=== PATIENT | female | born 1945 | race Caucasian/White ===

== ENCOUNTER 2018-05-23 13:41 | Inpatient (IN) | payer MEDICARE, SELFPAY ==
[2018-05-23 13:44] VITALS: BP 120/82; PULSE 64; RESP 16; TEMP 36; O2SAT 97
--- NOTE | 2018-05-23 14:13 | CT_ITS ---
STUDY: CT BRAIN WITHOUT CONTRAST REASON FOR EXAM: Female, 72 years old. Confusion, weakness and fatigue. RADIATION DOSAGE (If Supplied By Facility): CTDIvol = ( 44.99 ) mGy, DLP = ( 728.62 ) mGycm TECHNIQUE: Transaxial CT imaging of the brain was performed without administration of intravenous contrast material. Individualized dose optimization techniques were used for this CT. COMPARISON: None. FINDINGS: Normal soft tissue structures. Normal calvarium. There is mild cerebral atrophy with widening of the extra-axial spaces and ventricular dilatation. There are areas of decreased attenuation within the white matter tracts of the supratentorial brain, consistent with microvascular disease changes. Normal basal ganglia and thalami. Normal brainstem. Normal cerebellum. There is no intracranial hemorrhage. There are no findings of an acute ischemic infarction. Atherosclerotic calcification of the cavernous portions of the internal carotid arteries bilaterally. Normal visualized paranasal sinuses. CT/Brain/Head without Contrast IMPRESSION: Chronic involutional changes of the brain. Electronically Signed: Jeison Alvarez MD at 15:52 EST , Service support ,
--- NOTE | 2018-05-23 14:13 | RAD_ITS ---
STUDY: X-RAY CHEST REASON FOR EXAM: Female, 72 years old. Confusion, fatigue and tremors. TECHNIQUE: Single AP portable view of the chest. COMPARISON: Comparison is made with prior study dated November 27, 2015. FINDINGS: Hyperinflation. The lungs are clear. There is no demonstrated pleural abnormality. Normal size heart. Normal mediastinum and david. Normal visualized pulmonary arteries. There is atherosclerotic calcification of the aortic arch with tortuosity. There are diffuse degenerative changes of the visualized thoracic spine. Normal visualized ribs, clavicles, and shoulders. There is no demonstrated abnormality of the visualized soft tissue structures of the upper abdomen. RAD/Chest 1 View (Portable) IMPRESSION: Hyperinflation. The lungs are clear. Electronically Signed: Jeison Alvarez MD at 14:49 EST , Service support ,
--- NOTE | 2018-05-23 14:13 | EKG12_ITS ---
Test Reason : CONFUSION Blood Pressure : / mmHG Vent. Rate : 058 BPM Atrial Rate : 058 BPM P-R Int : 152 ms QRS Dur : 082 ms QT Int : 444 ms P-R-T Axes : 021 014 025 degrees QTc Int : 435 ms Sinus bradycardia Otherwise normal ECG Confirmed by MOON MEZA, JAVY ([id number]), managing editor BASILIO TORRES ([id number] on 05/27/2018 3:31:17 PM Referred By: ALLISON Confirmed By:JAVY MUSTAFA MD
--- NOTE | 2018-05-23 14:16 | ED.VISSUMM ---
- ER Visit Summary Date of Service: 05/23/18 Chief Complaint: Confusion History of Present Illness: The patient is a 72 F history of renal insufficiency, reflux, hypertension and prior symptoms in 2018 secondary to UTI. Per the patient and her boyfriend she slept most of the day yesterday. And is been confused today with unsteadiness and dropping things. No headache. No falls. No trauma. She denies nausea, vomiting, diarrhea or fever. Physical Examination: Older female no acute distress. Vital signs are stable and afebrile. Pulse ox 97% on room air no signs of hypoxia. She is awake and alert. HEENT exam pupils round react light. Moist extremities. No facial droop. Normal speech. No signs of trauma to face or scalp. Neck nontender. No lymphadenopathy. No meningismus. Lungs there to auscultation bilaterally. Heart regular rhythm no murmur rate about 85. Chest wall nontender. Abdomen soft and nontender. Patient is moving all 4 extremities. Neurovascular intact. Nontender. No edema. Equal symmetrical trials manager strength. Dorsi plantar flexion intact. Back nontender. Neurologically she is awake. She answers questions. She follows commands. She is acting appropriately. When you ask of the day she thinks it is Saturday. When I asked with a month she thought it was December. Her boyfriend is at bedside and said this is not her baseline. Test Results: [] Emergency Department Course and Treatment: Patient with confusion. Treatment Plan: [] Disposition: Admission Impression: Acute confusion History of renal insufficiency, reflux and hypertension This note was generated with [employer] dictation software. It may contain incorrect words, spelling, and punctuation that were not noted in review of the chart prior to signing ED Disposition - Plan for ED Patient: Chief Complaint: Confusion Referrals: Giuseppe Hunt DO [Primary Care Provider] -
--- NOTE | 2018-05-23 14:19 | ED.DCSUM_ITS ---
- ER Visit Summary Date of Service: 05/23/18 Chief Complaint: Confusion History of Present Illness: The patient is a 72 F history of renal insufficiency, reflux, hypertension and prior symptoms in 2018 secondary to UTI. Per the patient and her boyfriend she slept most of the day yesterday. And is been confused today with unsteadiness and dropping things. No headache. No falls. No trauma. She denies nausea, vomiting, diarrhea or fever. Physical Examination: Older female no acute distress. Vital signs are stable and afebrile. Pulse ox 97% on room air no signs of hypoxia. She is awake and alert. HEENT exam pupils round react light. Moist extremities. No facial droop. Normal speech. No signs of trauma to face or scalp. Neck nontender. No lymphadenopathy. No meningismus. Lungs there to auscultation bilaterally. Heart regular rhythm no murmur rate about 85. Chest wall nontender. Abdomen soft and nontender. Patient is moving all 4 extremities. Neurovascular intact. Nontender. No edema. 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 Dorsi plantar flexion intact. Back nontender. Neurologically she is awake. She answers questions. She follows commands. She is acting appropriately. When you ask of the day she thinks it is Saturday. When I asked with a month she thought it was December. Her boyfriend is at bedside and said this is not her baseline. Test Results: [] Emergency Department Course and Treatment: Patient with confusion. Treatment Plan: [] Disposition: Admission Impression: Acute confusion History of renal insufficiency, reflux and hypertension This note was generated with [employer] dictation software. It may contain incorrect words, spelling, and punctuation that were not noted in review of the chart prior to signing ED Disposition - Plan for ED Patient: Chief Complaint: Confusion Referrals: Giuseppe Hunt DO [Primary Care Provider] -
[2018-05-23 14:39] VITALS: BMI 30.1
[2018-05-23 15:01] LABS: Anion Gap 9 (5-15); BUN 19 mg/dL (7-18); BUN/Creat Ratio 9.6 RATIO (10-20); Chloride 105 mmol/L (98-107); Creatinine, Serum 1.97 mg/dL (0.55-1.02); EST Glomerular Filtration Rate 27 mL/min (>60); Est Glom Filt Rate - Afr Amer 32 mL/min (>60); Estimated Creatinine Clearance 21.02 ml/min; Glucose 96 mg/dL (74-106); Sodium Level 138 mmol/L (136-145)
[2018-05-23 15:02] LABS: Absolute Lymphocyte Count 1.99 X10^3/ul (0.83-4.51); Absolute Neutrophil Count 5.4 X10^3/uL (2.0-7.7); Basophil# 0.07 X10^3/uL; Basophil% 0.9 % (0-1); Eosinophil# 0.12 X10^3/uL; Eosinophils% 1.5 % (0-5); Hematocrit 41.3 % (37-47); Hemoglobin 13.2 g/dl (12.0-15.0); Lymphocyte # 1.99 X10^3/ul (4.0); Lymphocyte % 24.6 % (19-41); Mean Corpuscular Hgb 30.5 pg (27.0-32.0); Mean Corpuscular Volume 95.4 fL (81-99); Mean Platelet Vol. 11.2 fl (6.2-12.0); Monocyte# 0.52 X10^3/uL; Monocyte% 6.4 % (0-10); Neutrophil # 5.38 X10^3/uL (2.7-7.7); Neutrophil % 66.6 % (47-70); POSITIVE COUNT NO; POSITIVE DIFFERENTIAL NO; Platelet Count 286 K/mm3 (150-450); RBC Distribution Width CV 14.1 % (11.6-14.6); RBC Distribution Width SD 49.2 fl (35.1-43.9); Red Blood Count 4.33 M/mm3 (4.2-5.4); White Blood Count 8.1 K/mm3 (4.4-11.0)
[2018-05-23 15:44] LABS: Mucous, Urine 0 SEEN /hpf (<or=2+)
[2018-05-23 15:56] LABS: Color, Urine Yellow (Yellow); Glucose, Dipstick Normal (Normal); Ketone-Dipstick 5 mg/dl (Negative); Leukocyte Esterase-Dipstick 25 /ul (Negative); Nitrite-Dipstick Negative (Negative); Occult Blood-Urine 250 /ul (Negative); Protein-Dipstick 15 mg/dl (Negative); Specific Gravity, Urine 1.015 (1.002-1.030); Urine Bilirubin Dipstick Negative (Negative); Urine Clarity Sl. Cloudy (Clear); Urine Urobilinogen Normal (Normal)
[2018-05-23 15:58] LABS: POSITIVE MORPHOLOGY NO
[2018-05-23 16:00] VITALS: BP 128/63; PULSE 53; RESP 18; O2SAT 93
[2018-05-23 16:25] LABS: Bacteria 3+ /hpf (None Seen); Red Blood Cells-Urine 25-50 SEEN /hpf (0-5); Squamous Epithelial Cells - UA 5-10 SEEN /hpf (5-10); White Blood Cells 0-5 SEEN /hpf (0-5)
--- NOTE | 2018-05-23 17:17 | PCM.HP.STD ---
<Manuel Ballard - Last Filed: 05/23/18 17:17> Problem List (1) Acute metabolic encephalopathy Status: Acute (2) UTI (urinary tract infection) Status: Acute (3) CKD (chronic kidney disease), stage IV Status: Chronic (4) CAD (coronary artery disease) Status: Chronic (5) HTN (hypertension) Status: Chronic (6) GERD (gastroesophageal reflux disease) Status: Chronic History of Present Illness Date of Admission: 05/23/18 Chief Complaint: confusion The patient is a 72 year old F with pmhx of CAD without prior stenting/CABG, CKDIV, solitary kidney, GERD, HTN, who presents to the ER with new onset confusion. She is A/Ox1, so most of the history was obtained from her boyfriend who is present. He states he first noticed something was wrong yesterday as she was very lethargic all day and he thinks she slept for about 36 hours. This morning she woke up and was confused, when she spoke she didnt make any sense, and she seemed unsteady on her feet. She said she could not understand the newspaper. He states this is how she is when she gets UTI's, and that she had a severe one in August. She is very lethargic and required sternal rub to wake up. When she awoke she could tell me her full name. She could not tell me where she was or what year/day it was, or who was the president. She stated it was 2000. She did answer yes/no questsions. She speaks clearly. She denies pain, dysuria, chills, fever. She also was able to ambulate to the bathroom with an assistant media buyer. [] Past Medical History Past Medical History (Chronic Problems): Chronic Problems CKD (chronic kidney disease), stage IV (Chronic) CAD (coronary artery disease) (Chronic) HTN (hypertension) (Chronic) GERD (gastroesophageal reflux disease) (Chronic) Allergies codeine Allergy (Verified 05/23/18 13:44) Nausea/Vom/Diarrhea oxybutynin [From Ditropan] Allergy (Verified 05/23/18 13:44) Swelling Home Medications: Ambulatory Orders Medication Instructions Recorded Aspirin [Aspirin, Baby] 81 mg PO DAILY@0800 11/27/15 Atorvastatin Calcium [Lipitor] 40 mg PO QHS 11/27/15 Docusate Sodium [Colace] 100 mg PO BID 11/27/15 Gabapentin [Neurontin] 600 mg PO BIDCM 11/27/15 Hydrocodone Bitart/Apap 5-325 1 tablet PO TID 11/27/15 [[place] 5MG-325MG] Loratadine [Claritin] 10 mg PO DAILY 11/27/15 Nitroglycerin [Nitrostat] 0.4 mg SUBLINGUAL Q5M PRN 11/27/15 Omeprazole [Prilosec] 20 mg PO DAILY 11/27/15 traZODone [Desyrel] 50 - 100 mg PO QHS 11/27/15 Acebutolol HCl 200 mg PO DAILY 05/23/18 Baclofen 10 mg PO TID PRN PRN 05/23/18 Cholecalciferol (Vitamin D3) 2,000 unit PO DAILY 05/23/18 [Vitamin D3] Clobetasol Propionate 1 applic TP BID 05/23/18 Duloxetine Hcl [Cymbalta] 30 mg PO DAILY 05/23/18 Estradiol [Estrace] 1 applic TP DAILY 05/23/18 Losartan Potassium 50 mg PO DAILY 05/23/18 Mupirocin Calcium [Bactroban] 1 applic TP TID 05/23/18 Nifedipine [Nifedipine ER] 30 mg PO DAILY 05/23/18 Triamcinolone Acetonide 1 applic TP BID 05/23/18 Surgical History: no surgical history Psychiatric History: No pertinent psych hx 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 Denies: Chills, Fever, Weight Change HEENT: Denies: Head Aches, Sinus Congestion, Sinus Drainage Cardiovascular: Denies: Chest Pain, Palpitations Respiratory: Denies: Cough, Shortness of breath at rest, Sputum production Gastrointestinal: Denies: Abdominal Pain, Nausea, Vomiting Genitourinary: Denies: Dysuria Musculoskeletal: Denies: Joint Pain, Joint Tenderness Skin: Denies: Rash, Wounds Neurological: Reports: Confusion. Denies: Focal weakness, Numbness, Tingling Psychiatric: Denies: Anxiety, Depression, Homicidal Ideations, Suicidal Ideations Hematologic/ Lymphatic: Denies: Easy Bruising, Easy Bleeding VTE Information - Inpt Only VTE Present on Admission: No VTE Mechan Device Prophylaxis: None VTE Pharm Prophylaxis ordered?: Yes Patient Problems: Active and Suspected Problems Acute metabolic encephalopathy (Acute) UTI (urinary tract infection) (Acute) - Physical Exam General: Alert, Cooperative, Lethargic HEENT: Atraumatic, PERRLA, EOMI, Normocephalic Neck: Supple, No JVD, Negative Carotid Bruits Lungs: Clear to auscultation, Normal air movement Cardiovascular: Regular rate, No murmurs Abdomen: Bowel Sounds Present, Soft, Non Tender Extremities: No edema, Capillary Refill Less than 3 Seconds Skin: No rashes, No breakdown Musculoskeletal: No Tenderness to Palpation of Joints or Extremities Neurological: Cranial nerves II-XII grossly intact Psych/Mental Status: Normal Affect Vital Signs Temp Pulse Resp BP Pulse Ox 96.8 F L 53 L 18 128/63 H 93 05/23/18 13:44 05/23/18 16:00 05/23/18 16:00 05/23/18 16:00 05/23/18 16:00 Oxygen Delivery Method Room Air Weight: 164 lb 7.437 oz Body Mass Index (BMI) 30.0 Laboratory Tests Past 24 Hrs 05/23/18 05/23/18 05/23/18 14:35 14:35 15:40 WBC 8.1 RBC 4.33 Hgb 13.2 Hct 41.3 MCV 95.4 MCH 30.5 MCHC 32.0 RDW 14.1 RDW Differential 49.2 H Plt Count 286 MPV 11.2 Immature Gran % (Auto) 0.000 Neut % (Auto) 66.6 Lymph % (Auto) 24.6 [place] % (Auto) 6.4 Eos % (Auto) 1.5 Baso % (Auto) 0.9 Absolute Neuts (auto) 5.4 Absolute Lymphs (auto) 1.99 Total Counted Not Reportable Sodium 138 Potassium 5.0 Chloride 105 Carbon Dioxide 24.0 Anion Gap 9 BUN 19 H Creatinine 1.97 H Estim Creat Clear Calc 21.02 Est GFR (MDRD) Af Amer 32 L Est GFR (MDRD) Non-Af 27 L BUN/Creatinine Ratio 9.6 L Glucose 96 Calcium 9.0 Urine Color Yellow Urine Clarity Sl. Cloudy Urine pH 6.0 Ur Specific [place] 1.015 Urine Protein 15 H Urine Glucose (UA) Normal Urine Ketones 5 H Urine Occult Blood 250 H Urine Nitrite Negative Urine Bilirubin Negative Urine Urobilinogen Normal Ur Leukocyte Esterase 25 H Urine RBC 25-50 SEEN Urine WBC 0-5 SEEN Ur Squamous Epith Cells 5-10 SEEN Urine Bacteria 3+ Urine Mucus 0 SEEN Assessment/Plan All Active Problems Acute metabolic encephalopathy (Acute) UTI (urinary tract infection) (Acute) 1. Acute metabolic encephalopathy - presumed 2/2 UTI, probably a component of polypharmacy - + UA. no fever or leukocytosis. Per boyfriend this is a typical presentation for her. Will start rocephin and obtain culture. Hold multiple sedating medications that she is on as she is very lethargic - opiates, neurontin, baclofen, trazodone. CT brain is negative. CXR with hyperinflation. Check blood cultures. 2. CKD IV - baseline unclear. IV fluids. follows nephrology in [place]. Solitary kidney. 3. Chronic pain 2/2 prior back issues and fibromyalgia - as above, hold sedating meds, she denies any pain currently 4. CAD with HTN, HLD - reports occlusive coronary disease but no hx of stents/cabg. Continue asa, statin. Hold arb. Pressure running low. 5. GERD - on ppi DVT ppx: heparin DC planning: PTOT This patient was seen by Manuel Ballard PA-C under the supervision of Dr. Sr <Melody Sr - Last Filed: 05/23/18 18:04> History of Present Illness The patient is a 72 year old F [] Past Medical History Allergies codeine Allergy (Verified 05/23/18 13:44) Nausea/Vom/Diarrhea oxybutynin [From Ditropan] Allergy (Verified 05/23/18 13:44) Swelling - Physical Exam Vital Signs Temp Pulse Resp BP Pulse Ox 96.8 F L 56 L 18 95/60 94 05/23/18 13:44 05/23/18 17:29 05/23/18 17:29 05/23/18 17:29 05/23/18 17:29 Oxygen Delivery Method Room Air Weight: 164 lb 7.437 oz Body Mass Index (BMI) 30.0 Laboratory Tests Past 24 Hrs 05/23/18 05/23/18 05/23/18 14:35 14:35 15:40 WBC 8.1 RBC 4.33 Hgb 13.2 Hct 41.3 MCV 95.4 MCH 30.5 MCHC 32.0 RDW 14.1 RDW Differential 49.2 H Plt Count 286 MPV 11.2 Immature Gran % (Auto) 0.000 Neut % (Auto) 66.6 Lymph % (Auto) 24.6 [place] % (Auto) 6.4 Eos % (Auto) 1.5 Baso % (Auto) 0.9 Absolute Neuts (auto) 5.4 Absolute Lymphs (auto) 1.99 Total Counted Not Reportable Sodium 138 Potassium 5.0 Chloride 105 Carbon Dioxide 24.0 Anion Gap 9 BUN 19 H Creatinine 1.97 H Estim Creat Clear Calc 21.02 Est GFR (MDRD) Af Amer 32 L Est GFR (MDRD) Non-Af 27 L BUN/Creatinine Ratio 9.6 L Glucose 96 Calcium 9.0 Urine Color Yellow Urine Clarity Sl. Cloudy Urine pH 6.0 Ur Specific [place] 1.015 Urine Protein 15 H Urine Glucose (UA) Normal Urine Ketones 5 H Urine Occult Blood 250 H Urine Nitrite Negative Urine Bilirubin Negative Urine Urobilinogen Normal Ur Leukocyte Esterase 25 H Urine RBC 25-50 SEEN Urine WBC 0-5 SEEN Ur Squamous Epith Cells 5-10 SEEN Urine Bacteria 3+ Urine Mucus 0 SEEN Assessment/Plan Hospitalist note: I am seeing this patient in conjunction with Manuel Ballard. I independently seen and examined the patient. History and physical, laboratory data and imaging studies reviewed and I concur with the above admission and treatment plan. Patient was presented to the ED because of confusion. Initially, patient was very sleepy and lethargic, only oriented to herself but disoriented to time and place. When I saw the patient, nursing staff told me that she got much better after he received IV fluids and patient knows her full name, date of and she knows where she is at but she is disoriented to time. She complains of being shaky and restless. She denied chest pain or shortness of breath. Denied dizziness or lightheadedness. She reported difficulty urinating, denies dysuria or hematuria. Denies fever chills. She is afebrile, heart rate has been in the high 50s, blood pressure is 95/60 and pulse ox is maintained on room air. - Physical Exam General: Alert, Oriented x2, Cooperative, No apparent distress. HEENT: Atraumatic, PERRLA, EOMI. Neck: Supple, No JVD, Negative Carotid Bruits, Trachea Midline, Thyroid Normal. Lungs: Clear to auscultation, Normal air movement, No rhonchi, No wheeze, No rales. Cardiovascular: Regular rate, Regular Rhythm, Normal S1, Normal S2, PMI Normal. Abdomen: Bowel Sounds Present, Soft, Non Tender, Non-Distended, No Hepato-splenomegaly. Extremities: No clubbing, No cyanosis, No edema Skin: No rashes, No breakdown Neurological: Neuro grossly intact Vital Signs are stable. Assessment and plan: #1 acute metabolic encephalopathy: Likely secondary to UTI, possibly polypharmacy as she has been on multiple medications. CT scan brain showed no acute findings. Her blood pressure is borderline at this time but she is asymptomatic and she has been bradycardic which is chronic. Plan as above, IV fluids, IV antibiotics, hold sedating medications as above. Chest x-ray showed no acute findings. #2 acute cystitis: This is likely the source of the encephalopathy and confusion. Plan for IV Rocephin, blood culture, urine culture, repeat CBC and BMP tomorrow morning. #3 other chronic medical problems: Stable, continue current medications as above. I will hold her baclofen, Neurontin, losartan and nifedipine as well as trazodone. This note was generated with [email or web address] dictation software. It may contain incorrect words, spelling, and punctuation that were not noted in checking the note before signing. Code Visit Inpatient E&M: 81404 Init Hosp L3
--- NOTE | 2018-05-23 17:23 | HP.PCM_ITS ---
<Manuel Ballard - Last Filed: 05/23/18 17:17> Problem List (1) Acute metabolic encephalopathy Status: Acute (2) UTI (urinary tract infection) Status: Acute (3) CKD (chronic kidney disease), stage IV Status: Chronic (4) CAD (coronary artery disease) Status: Chronic (5) HTN (hypertension) Status: Chronic (6) GERD (gastroesophageal reflux disease) Status: Chronic History of Present Illness Date of Admission: 05/23/18 Chief Complaint: confusion The patient is a 72 year old F with pmhx of CAD without prior stenting/CABG, CKDIV, solitary kidney, GERD, HTN, who presents to the ER with new onset confusion. She is A/Ox1, so most of the history was obtained from her boyfriend who is present. He states he first noticed something was wrong yesterday as she was very lethargic all day and he thinks she slept for about 36 hours. This morning she woke up and was confused, when she spoke she didnt make any sense, and she seemed unsteady on her feet. She said she could not understand the newspaper. He states this is how she is when she gets UTI's, and that she had a severe one in August. She is very lethargic and required sternal rub to wake up. When she awoke she could tell me her full name. She could not tell me where she was or what year/day it was, or who was the president. She stated it was 2000. She did answer yes/no questsions. She speaks clearly. She denies pain, dysuria, chills, fever. 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 [] Past Medical History Past Medical History (Chronic Problems): Chronic Problems CKD (chronic kidney disease), stage IV (Chronic) CAD (coronary artery disease) (Chronic) HTN (hypertension) (Chronic) GERD (gastroesophageal reflux disease) (Chronic) Allergies codeine Allergy (Verified 05/23/18 13:44) Nausea/Vom/Diarrhea oxybutynin [From Ditropan] Allergy (Verified 05/23/18 13:44) Swelling Home Medications: Ambulatory Orders Medication Instructions Recorded Aspirin [Aspirin, Baby] 81 mg PO DAILY@0800 11/27/15 Atorvastatin Calcium [Lipitor] 40 mg PO QHS 11/27/15 Docusate Sodium [Colace] 100 mg PO BID 11/27/15 Gabapentin [Neurontin] 600 mg PO BIDCM 11/27/15 Hydrocodone Bitart/Apap 5-325 1 tablet PO TID 11/27/15 [[place] 5MG-325MG] Loratadine [Claritin] 10 mg PO DAILY 11/27/15 Nitroglycerin [Nitrostat] 0.4 mg SUBLINGUAL Q5M PRN 11/27/15 Omeprazole [Prilosec] 20 mg PO DAILY 11/27/15 traZODone [Desyrel] 50 - 100 mg PO QHS 11/27/15 Acebutolol HCl 200 mg PO DAILY 05/23/18 Baclofen 10 mg PO TID PRN PRN 05/23/18 Cholecalciferol (Vitamin D3) 2,000 unit PO DAILY 05/23/18 [Vitamin D3] Clobetasol Propionate 1 applic TP BID 05/23/18 Duloxetine Hcl [Cymbalta] 30 mg PO DAILY 05/23/18 Estradiol [Estrace] 1 applic TP DAILY 05/23/18 Losartan Potassium 50 mg PO DAILY 05/23/18 Mupirocin Calcium [Bactroban] 1 applic TP TID 05/23/18 Nifedipine [Nifedipine ER] 30 mg PO DAILY 05/23/18 Triamcinolone Acetonide 1 applic TP BID 05/23/18 Surgical History: no surgical history Psychiatric History: No pertinent psych hx HIP HOP PERFORMERS History: No pertinent HIP HOP PERFORMERS history Lives: Spouse/ Significant Other Smoking Status: Never smoker Tobacco Use: Non-smoker Alcohol: None Drugs: None - *Family History Maternal History Items: Heart Disease Paternal History Items: Heart Disease Review of Systems Constitutional: Reports: Fatigue. Denies: Chills, Fever, Weight Change HEENT: Denies: Head Aches, Sinus Congestion, Sinus Drainage Cardiovascular: Denies: Chest Pain, Palpitations Respiratory: Denies: Cough, Shortness of breath at rest, Sputum production Gastrointestinal: Denies: Abdominal Pain, Nausea, Vomiting Genitourinary: Denies: Dysuria Musculoskeletal: Denies: Joint Pain, Joint Tenderness Skin: Denies: Rash, Wounds Neurological: Reports: Confusion. Denies: Focal weakness, Numbness, Tingling Psychiatric: Denies: Anxiety, Depression, Homicidal Ideations, Suicidal Ideations Hematologic/ Lymphatic: Denies: Easy Bruising, Easy Bleeding VTE Information - Inpt Only VTE Present on Admission: No VTE Mechan Device Prophylaxis: None VTE Pharm Prophylaxis ordered?: Yes Patient Problems: Active and Suspected Problems Acute metabolic encephalopathy (Acute) UTI (urinary tract infection) (Acute) - Physical Exam General: Alert, Cooperative, Lethargic HEENT: Atraumatic, PERRLA, EOMI, Normocephalic Neck: Supple, No JVD, Negative Carotid Bruits Lungs: Clear to auscultation, Normal air movement Cardiovascular: Regular rate, No murmurs Abdomen: Bowel Sounds Present, Soft, Non Tender Extremities: No edema, Capillary Refill Less than 3 Seconds Skin: No rashes, No breakdown Musculoskeletal: No Tenderness to Palpation of Joints or Extremities Neurological: Cranial nerves II-XII grossly intact Psych/Mental Status: Normal Affect Vital Signs Temp Pulse Resp BP Pulse Ox 96.8 F L 53 L 18 128/63 H 93 05/23/18 13:44 05/23/18 16:00 05/23/18 16:00 05/23/18 16:00 05/23/18 16:00 Oxygen Delivery Method Room Air Weight: 164 lb 7.437 oz Body Mass Index (BMI) 30.0 Laboratory Tests Past 24 Hrs 05/23/18 05/23/18 05/23/18 14:35 14:35 15:40 WBC 8.1 RBC 4.33 Hgb 13.2 Hct 41.3 MCV 95.4 MCH 30.5 MCHC 32.0 RDW 14.1 RDW Differential 49.2 H Plt Count 286 MPV 11.2 Immature Gran % (Auto) 0.000 Neut % (Auto) 66.6 Lymph % (Auto) 24.6 [place] % (Auto) 6.4 Eos % (Auto) 1.5 Baso % (Auto) 0.9 Absolute Neuts (auto) 5.4 Absolute Lymphs (auto) 1.99 Total Counted Not Reportable Sodium 138 Potassium 5.0 Chloride 105 Carbon Dioxide 24.0 Anion Gap 9 BUN 19 H Creatinine 1.97 H Estim Creat Clear Calc 21.02 Est GFR (MDRD) Af Amer 32 L Est GFR (MDRD) Non-Af 27 L BUN/Creatinine Ratio 9.6 L Glucose 96 Calcium 9.0 Urine Color Yellow Urine Clarity Sl. Cloudy Urine pH 6.0 Ur Specific [place] 1.015 Urine Protein 15 H Urine Glucose (UA) Normal Urine Ketones 5 H Urine Occult Blood 250 H Urine Nitrite Negative Urine Bilirubin Negative Urine Urobilinogen Normal Ur Leukocyte Esterase 25 H Urine RBC 25-50 SEEN Urine WBC 0-5 SEEN Ur Squamous Epith Cells 5-10 SEEN Urine Bacteria 3+ Urine Mucus 0 SEEN Assessment/Plan All Active Problems Acute metabolic encephalopathy (Acute) UTI (urinary tract infection) (Acute) 1. Acute metabolic encephalopathy - presumed 2/2 UTI, probably a component of polypharmacy - + UA. no fever or leukocytosis. Per boyfriend this is a typical presentation for her. Will start rocephin and obtain culture. Hold multiple sedating medications that she is on as she is very lethargic - opiates, neurontin, baclofen, trazodone. CT brain is negative. CXR with hyperinflation. Check blood cultures. 2. CKD IV - baseline unclear. IV fluids. follows nephrology in [place]. Solitary kidney. 3. Chronic pain 2/2 prior back issues and fibromyalgia - as above, hold sedating meds, she denies any pain currently 4. CAD with HTN, HLD - reports occlusive coronary disease but no hx of stents/cabg. Continue asa, statin. Hold arb. Pressure running low. 5. GERD - on ppi DVT ppx: heparin DC planning: PTOT This patient was seen by Manuel Ballard PA-C under the supervision of Dr. Sr <Melody Sr - Last Filed: 05/23/18 18:04> History of Present Illness The patient is a 72 year old F [] Past Medical History Allergies codeine Allergy (Verified 05/23/18 13:44) Nausea/Vom/Diarrhea oxybutynin [From Ditropan] Allergy (Verified 05/23/18 13:44) Swelling - Physical Exam Vital Signs Temp Pulse Resp BP Pulse Ox 96.8 F L 56 L 18 95/60 94 05/23/18 13:44 05/23/18 17:29 05/23/18 17:29 05/23/18 17:29 05/23/18 17:29 Oxygen Delivery Method Room Air Weight: 164 lb 7.437 oz Body Mass Index (BMI) 30.0 Laboratory Tests Past 24 Hrs 05/23/18 05/23/18 05/23/18 14:35 14:35 15:40 WBC 8.1 RBC 4.33 Hgb 13.2 Hct 41.3 MCV 95.4 MCH 30.5 MCHC 32.0 RDW 14.1 RDW Differential 49.2 H Plt Count 286 MPV 11.2 Immature Gran % (Auto) 0.000 Neut % (Auto) 66.6 Lymph % (Auto) 24.6 [place] % (Auto) 6.4 Eos % (Auto) 1.5 Baso % (Auto) 0.9 Absolute Neuts (auto) 5.4 Absolute Lymphs (auto) 1.99 Total Counted Not Reportable Sodium 138 Potassium 5.0 Chloride 105 Carbon Dioxide 24.0 Anion Gap 9 BUN 19 H Creatinine 1.97 H Estim Creat Clear Calc 21.02 Est GFR (MDRD) Af Amer 32 L Est GFR (MDRD) Non-Af 27 L BUN/Creatinine Ratio 9.6 L Glucose 96 Calcium 9.0 Urine Color Yellow Urine Clarity Sl. Cloudy Urine pH 6.0 Ur Specific [place] 1.015 Urine Protein 15 H Urine Glucose (UA) Normal Urine Ketones 5 H Urine Occult Blood 250 H Urine Nitrite Negative Urine Bilirubin Negative Urine Urobilinogen Normal Ur Leukocyte Esterase 25 H Urine RBC 25-50 SEEN Urine WBC 0-5 SEEN Ur Squamous Epith Cells 5-10 SEEN Urine Bacteria 3+ Urine Mucus 0 SEEN Assessment/Plan Hospitalist note: I am seeing this patient in conjunction with Manuel Ballard. I independently seen and examined the patient. History and physical, laboratory data and imaging studies reviewed and I concur with the above admission and treatment plan. Patient was presented to the ED because of confusion. Initially, patient was very sleepy and lethargic, only oriented to herself but disoriented to time and place. When I saw the patient, nursing staff told me that she got much better after he received IV fluids and patient knows her full name, date of and she knows where she is at but she is disoriented to time. She complains of being shaky and restless. She denied chest pain or shortness of breath. Denied dizziness or lightheadedness. She reported difficulty urinating, denies dysuria or hematuria. Denies fever chills. She is afebrile, heart rate has been in the high 50s, blood pressure is 95/60 and pulse ox is maintained on room air. - Physical Exam General: Alert, Oriented x2, Cooperative, No apparent distress. HEENT: Atraumatic, PERRLA, EOMI. Neck: Supple, No JVD, Negative Carotid Bruits, Trachea Midline, Thyroid Normal. Lungs: Clear to auscultation, Normal air movement, No rhonchi, No wheeze, No rales. Cardiovascular: Regular rate, Regular Rhythm, Normal S1, Normal S2, PMI Normal. Abdomen: Bowel Sounds Present, Soft, Non Tender, Non-Distended, No Hepato- splenomegaly. Extremities: No clubbing, No cyanosis, No edema Skin: No rashes, No breakdown Neurological: Neuro grossly intact Vital Signs are stable. Assessment and plan: #1 acute metabolic encephalopathy: Likely secondary to UTI, possibly poly pharmacy as she has been on multiple medications. CT scan brain showed no acute findings. Her blood pressure is borderline at this time but she is asymptomatic and she has been bradycardic which is chronic. Plan as above, IV fluids, IV antibiotics, hold sedating medications as above. Chest x-ray showed no acute findings. #2 acute cystitis: This is likely the source of the encephalopathy and c onfusion. Plan for IV Rocephin, blood culture, urine culture, repeat CBC and BMP tomorrow morning. #3 other chronic medical problems: Stable, continue current medications as above. I will hold her baclofen, Neurontin, losartan and nifedipine as well as trazodone. This note was generated with [employer] dictation software. It may contain incorrect words, spelling, and punctuation that were not noted in checking the note before signing. Code Visit Inpatient E&M: 24256 Init Hosp L3
[2018-05-23] MEDS: Ceftriaxone 1 GM/50 ML BAG IV (17:27)
[2018-05-23 17:29] VITALS: BP 95/60; PULSE 56; RESP 18; O2SAT 94
[2018-05-23] MEDS: 0.9% Normal Saline 1,000 ML 100 ML IV (18:16)
[2018-05-23 18:17] VITALS: BP 119/66; PULSE 58; RESP 16; TEMP 36.9; O2SAT 96
[2018-05-23] MEDS: Acetaminophen 325 MG Tablet 650 MG PO (18:37)
[2018-05-23 19:01] VITALS: PULSE 65
[2018-05-23 20:34] VITALS: BP 115/62; PULSE 60; RESP 18; TEMP 36.8; O2SAT 96
[2018-05-23] MEDS: Atorvastatin Calcium 40 MG Tablet PO (21:38)
[2018-05-23] MEDS: Heparin Injection (Vial) 5,000 UNIT/ML VIAL 5000 UNIT SC (21:38)
[2018-05-23] MEDS: Docusate Sodium 100 MG Capsule PO (21:38)
[2018-05-24] VITALS (11 sets, daily range): BP systolic 122–163; BP diastolic 72–84; PULSE 53–70; RESP 16; TEMP 36.8–37.1; O2SAT 94–96
[2018-05-24] MEDS: 0.9% Normal Saline 1,000 ML 100 ML IV ×3 (03:24→21:44)
[2018-05-24 05:47] LABS: Absolute Lymphocyte Count 1.85 X10^3/ul (0.83-4.51); Absolute Neutrophil Count 3.3 X10^3/uL (2.0-7.7); Basophil# 0.05 X10^3/uL; Basophil% 0.9 % (0-1); Eosinophil# 0.09 X10^3/uL; Eosinophils% 1.6 % (0-5); Hematocrit 38.3 % (37-47); Hemoglobin 12.2 g/dl (12.0-15.0); Lymphocyte # 1.85 X10^3/ul (4.0); Mean Corp Hgb Conc 31.9 g/gl (32-36); Mean Corpuscular Hgb 30.3 pg (27.0-32.0); Mean Corpuscular Volume 95.3 fL (81-99); Monocyte# 0.32 X10^3/uL; Monocyte% 5.7 % (0-10); Neutrophil # 3.29 X10^3/uL (2.7-7.7); Neutrophil % 58.8 % (47-70); Platelet Count 252 K/mm3 (150-450); RBC Distribution Width CV 13.8 % (11.6-14.6); RBC Distribution Width SD 45.6 fl (35.1-43.9); Red Blood Count 4.02 M/mm3 (4.2-5.4); White Blood Count 5.6 K/mm3 (4.4-11.0)
[2018-05-24 06:00] LABS: Anion Gap 6 (5-15); BUN 18 mg/dL (7-18); BUN/Creat Ratio 11.7 RATIO (10-20); Calcium,Total 8.4 mg/dL (8.5-10.1); Chloride 112 mmol/L (98-107); Creatinine, Serum 1.54 mg/dL (0.55-1.02); EST Glomerular Filtration Rate 35 mL/min (>60); Est Glom Filt Rate - Afr Amer 43 mL/min (>60); Estimated Creatinine Clearance 26.88 ml/min; Glucose 100 mg/dL (74-106); Potassium 4.4 mmol/L (3.5-5.1); Sodium Level 144 mmol/L (136-145)
[2018-05-24 06:01] LABS: POSITIVE COUNT NO; POSITIVE DIFFERENTIAL NO; POSITIVE MORPHOLOGY NO
[2018-05-24] MEDS: Heparin Injection (Vial) 5,000 UNIT/ML VIAL 5000 UNIT SC ×3 (06:02→21:44)
[2018-05-24] MEDS: Acetaminophen 325 MG Tablet 650 MG PO ×2 (07:38→20:28)
[2018-05-24] MEDS: DULoxetine Hcl 30 MG Capsule PO (08:26)
[2018-05-24] MEDS: Loratadine 10 MG Tablet PO (08:26)
[2018-05-24] MEDS: Aspirin 81 MG TAB.CHEW PO (08:26)
[2018-05-24] MEDS: Docusate Sodium 100 MG Capsule PO (08:27)
[2018-05-24] MEDS: Pantoprazole Sodium 20 MG Tablet PO (08:29)
--- NOTE | 2018-05-24 08:41 | PCM.PN.HOSP ---
Patient Problems: Active and Suspected Problems Acute metabolic encephalopathy (Acute) UTI (urinary tract infection) (Acute) Subjective: Denies any complaints. Vitals/I&O's: Vital Signs Temp Pulse Resp BP Pulse Ox 36.9 C 66 16 122/72 H 96 05/24/18 03:00 05/24/18 07:30 05/24/18 03:00 05/24/18 03:00 05/24/18 07:25 Oxygen Delivery Method Room Air Weight: 74.5 kg Body Mass Index (BMI) 30.0 Intake and Output for Last 24 Hours 05/22/18 05/23/18 05/24/18 23:59 23:59 23:59 Intake Total 1589 / 1589 Output Total 500 / 500 Balance 1089 / 1089 General: Alert, - - oriented to self only. President is Brad. Does not know date. Though does know she is in a hospital, but does not which one. HEENT: Atraumatic, Normocephalic Oral: Moist Mucosa, No Gingival or Mucosal Lesions/ Ulcerations Neck: No Nodes, Thyroid Normal Size and Texture Lungs: Clear to auscultation, Normal air movement, No rhonchi, No wheeze Cardiovascular: Regular rate, Regular Rhythm, Normal S1, Normal S2, No murmurs Abdomen: Bowel Sounds Present, Soft, Non Tender, Non-Distended Extremities: No edema, No Calf Tenderness Skin: No rashes, No breakdown Musculoskeletal: No Tenderness to Palpation of Joints or Extremities, No Muscle Wasting Neurological: Cranial nerves II-XII grossly intact, Motor Exam 5/5 strength throughout, Muscle tone normal, Sensory exam intact to light touch and pain Psych/Mental Status: Normal Affect, Appropriate Laboratory Results 05/23/18 14:35: WBC 8.1, RBC 4.33, Hgb 13.2, Hct 41.3, MCV 95.4, MCH 30.5, MCHC 32.0, RDW 14.1, RDW Differential 49.2 H, Plt Count 286, MPV 11.2, Immature Gran % (Auto) 0.000, Neut % (Auto) 66.6, Lymph % (Auto) 24.6, [place] % (Auto) 6.4, Eos % (Auto) 1.5, Baso % (Auto) 0.9, Absolute Neuts (auto) 5.4, Absolute Lymphs (auto) 1.99, Total Counted Not Reportable 05/23/18 14:35: Sodium 138, Potassium 5.0, Chloride 105, Carbon Dioxide 24.0, Anion Gap 9, BUN 19 H, Creatinine 1.97 H, Estim Creat Clear Calc 21.02, Est GFR (MDRD) Af Amer 32 L, Est GFR (MDRD) Non-Af 27 L, BUN/Creatinine Ratio 9.6 L, Glucose 96, Calcium 9.0 05/23/18 15:40: Urine Color Yellow, Urine Clarity Sl. Cloudy, Urine pH 6.0, Ur Specific [place] 1.015, Urine Protein 15 H, Urine Glucose (UA) Normal, Urine Ketones 5 H, Urine Occult Blood 250 H, Urine Nitrite Negative, Urine Bilirubin Negative, Urine Urobilinogen Normal, Ur Leukocyte Esterase 25 H, Urine RBC 25-50 SEEN, Urine WBC 0-5 SEEN, Ur Squamous Epith Cells 5-10 SEEN, Urine Bacteria 3+, Urine Mucus 0 SEEN 05/24/18 05:22: WBC 5.6, RBC 4.02 L, Hgb 12.2, Hct 38.3, MCV 95.3, MCH 30.3, MCHC 31.9 L, RDW 13.8, RDW Differential 45.6 H, Plt Count 252, MPV 11.0, Immature Gran % (Auto) 0.000, Neut % (Auto) 58.8, Lymph % (Auto) 33.0, [place] % (Auto) 5.7, Eos % (Auto) 1.6, Baso % (Auto) 0.9, Absolute Neuts (auto) 3.3, Absolute Lymphs (auto) 1.85, Total Counted Not Reportable 05/24/18 05:22: Sodium 144, Potassium 4.4, Chloride 112 H, Carbon Dioxide 26.0, Anion Gap 6, BUN 18, Creatinine 1.54 H, Estim Creat Clear Calc 26.88, Est GFR (MDRD) Af Amer 43 L, Est GFR (MDRD) Non-Af 35 L, BUN/Creatinine Ratio 11.7, Glucose 100, Calcium 8.4 L Current Medications Acetaminophen (Tylenol) 650 mg PO Q6H PRN PRN PRN Reason: Mild Pain (scale 0-3)/T>100.7 Last Admin: 05/24/18 07:38 Dose: 650 mg Aspirin (Aspirin, Baby) 81 mg PO DAILY@0800 [facility] Last Admin: 05/24/18 08:26 Dose: 81 mg Atorvastatin Calcium (Lipitor) 40 mg PO QHS [facility] Last Admin: 05/23/18 21:38 Dose: 40 mg Docusate Sodium (Colace) 100 mg PO BID [facility] Last Admin: 05/24/18 08:27 Dose: 100 mg Duloxetine HCl (Cymbalta) 30 mg PO DAILY [facility] Last Admin: 05/24/18 08:26 Dose: 30 mg Heparin Sodium (Porcine) (Heparin Na) 5,000 unit SC Q8 [facility] Last Admin: 05/24/18 06:02 Dose: 5,000 unit Sodium Chloride () 1,000 mls @ 100 mls/hr IV .Q10H [facility] Last Admin: 05/24/18 03:24 Dose: 100 mls/hr Ceftriaxone Sodium (Rocephin) 1 gm in 50 mls @ 100 mls/hr IV DAILY [facility] Loratadine (Claritin) 10 mg PO DAILY [facility] Last Admin: 05/24/18 08:26 Dose: 10 mg Magnesium Hydroxide (Milk Of Magnesia) 30 ml PO DAILY PRN PRN PRN Reason: Constipation Ondansetron HCl (Zofran) 4 mg IV Q8H PRN PRN PRN Reason: Nausea Pantoprazole Sodium (Protonix) 20 mg PO DAILY [facility] Last Admin: 05/24/18 08:29 Dose: 20 mg Sodium Chloride () 5 - 15 ml IV UD PRN PRN Reason: SALINE FLUSH Medical Necessity - Tobacco Use Smoking Status: Never smoker Tobacco Use: Non-smoker Assessment/Plan All Active Problems Acute metabolic encephalopathy (Acute) UTI (urinary tract infection) (Acute) 1. Presumed toxic encephalopathy Reviewed OARRS: she receives [place] and Gabapentin. She received 810 gabapentin (90 day supply) on 04/24. DC all potentiating medications: norco, gabapentin, baclofen I feel Gabapentin is the most likely etiology of her confusion. If persists, consider MRI 2. Cystitis Ruled out UA unremarkable DC abx 3. CKD 3 stable Patient is not uremic 4. DVT proph: SQ heparin. Code Visit Inpatient E&M: 81220 Subs Hosp L3
--- NOTE | 2018-05-24 08:48 | PN_ITS ---
Patient Problems: Active and Suspected Problems Acute metabolic encephalopathy (Acute) UTI (urinary tract infection) (Acute) Subjective: Denies any complaints. Vitals/I&O's: Vital Signs Temp Pulse Resp BP Pulse Ox 36.9 C 66 16 122/72 H 96 05/24/18 03:00 05/24/18 07:30 05/24/18 03:00 05/24/18 03:00 05/24/18 07:25 Oxygen Delivery Method Room Air Weight: 74.5 kg Body Mass Index (BMI) 30.0 Intake and Output for Last 24 Hours 05/22/18 05/23/18 05/24/18 23:59 23:59 23:59 Intake Total 1589 / 1589 Output Total 500 / 500 Balance 1089 / 1089 General: Alert, - - oriented to self only. President is Brad. Does not know date. Though does know she is in a hospital, but does not which one. HEENT: Atraumatic, Normocephalic Oral: Moist Mucosa, No Gingival or Mucosal Lesions/ Ulcerations Neck: No Nodes, Thyroid Normal Size and Texture Lungs: Clear to auscultation, Normal air movement, No rhonchi, No wheeze Cardiovascular: Regular rate, Regular Rhythm, Normal S1, Normal S2, No murmurs Abdomen: Bowel Sounds Present, Soft, Non Tender, Non-Distended Extremities: No edema, No Calf Tenderness Skin: No rashes, No breakdown Musculoskeletal: No Tenderness to Palpation of Joints or Extremities, No Muscle Wasting Neurological: Cranial nerves II-XII grossly intact, Motor Exam 5/5 strength throughout, Muscle tone normal, Sensory exam intact to light touch and pain Psych/Mental Status: Normal Affect, Appropriate Laboratory Results 05/23/18 14:35: WBC 8.1, RBC 4.33, Hgb 13.2, Hct 41.3, MCV 95.4, MCH 30.5, MCHC 32.0, RDW 14.1, RDW Differential 49.2 H, Plt Count 286, MPV 11.2, Immature Gran % (Auto) 0.000, Neut % (Auto) 66.6, Lymph % (Auto) 24.6, [place] % (Auto) 6.4, Eos % (Auto) 1.5, Baso % (Auto) 0.9, Absolute Neuts (auto) 5.4, Absolute Lymphs (auto) 1.99, Total Counted Not Reportable 05/23/18 14:35: Sodium 138, Potassium 5.0, Chloride 105, Carbon Dioxide 24.0, Anion Gap 9, BUN 19 H, Creatinine 1.97 H, Estim Creat Clear Calc 21.02, Est GFR (MDRD) Af Amer 32 L, Est GFR (MDRD) Non-Af 27 L, BUN/Creatinine Ratio 9.6 L, Glucose 96, Calcium 9.0 05/23/18 15:40: Urine Color Yellow, Urine Clarity Sl. Cloudy, Urine pH 6.0, Ur Specific [place] 1.015, Urine Protein 15 H, Urine Glucose (UA) Normal, Urine Ketones 5 H, Urine Occult Blood 250 H, Urine Nitrite Negative, Urine Bilirubin Negative, Urine Urobilinogen Normal, Ur Leukocyte Esterase 25 H, Urine RBC 25-50 SEEN, Urine WBC 0-5 SEEN, Ur Squamous Epith Cells 5-10 SEEN, Urine Bacteria 3+, Urine Mucus 0 SEEN 05/24/18 05:22: WBC 5.6, RBC 4.02 L, Hgb 12.2, Hct 38.3, MCV 95.3, MCH 30.3, MCHC 31.9 L, RDW 13.8, RDW Differential 45.6 H, Plt Count 252, MPV 11.0, Immature Gran % (Auto) 0.000, Neut % (Auto) 58.8, Lymph % (Auto) 33.0, [place] % (Auto) 5.7, Eos % (Auto) 1.6, Baso % (Auto) 0.9, Absolute Neuts (auto) 3.3, Absolute Lymphs (auto) 1.85, Total Counted Not Reportable 05/24/18 05:22: Sodium 144, Potassium 4.4, Chloride 112 H, Carbon Dioxide 26.0, Anion Gap 6, BUN 18, Creatinine 1.54 H, Estim Creat Clear Calc 26.88, Est GFR (MDRD) Af Amer 43 L, Est GFR (MDRD) Non-Af 35 L, BUN/Creatinine Ratio 11.7, Glucose 100, Calcium 8.4 L Current Medications Acetaminophen (Tylenol) 650 mg PO Q6H PRN PRN PRN Reason: Mild Pain (scale 0-3)/T>100.7 Last Admin: 05/24/18 07:38 Dose: 650 mg Aspirin (Aspirin, Baby) 81 mg PO DAILY@0800 [facility] Last Admin: 05/24/18 08:26 Dose: 81 mg Atorvastatin Calcium (Lipitor) 40 mg PO QHS [facility] Last Admin: 05/23/18 21:38 Dose: 40 mg Docusate Sodium (Colace) 100 mg PO BID [facility] Last Admin: 05/24/18 08:27 Dose: 100 mg Duloxetine HCl (Cymbalta) 30 mg PO DAILY [facility] Last Admin: 05/24/18 08:26 Dose: 30 mg Heparin Sodium (Porcine) (Heparin Na) 5,000 unit SC Q8 [facility] Last Admin: 05/24/18 06:02 Dose: 5,000 unit Sodium Chloride () 1,000 mls @ 100 mls/hr IV .Q10H [facility] Last Admin: 05/24/18 03:24 Dose: 100 mls/hr Ceftriaxone Sodium (Rocephin) 1 gm in 50 mls @ 100 mls/hr IV DAILY [facility] Loratadine (Claritin) 10 mg PO DAILY [facility] Last Admin: 05/24/18 08:26 Dose: 10 mg Magnesium Hydroxide (Milk Of Magnesia) 30 ml PO DAILY PRN PRN PRN Reason: Constipation Ondansetron HCl (Zofran) 4 mg IV Q8H PRN PRN PRN Reason: Nausea Pantoprazole Sodium (Protonix) 20 mg PO DAILY [facility] Last Admin: 05/24/18 08:29 Dose: 20 mg Sodium Chloride () 5 - 15 ml IV UD PRN PRN Reason: SALINE FLUSH Medical Necessity - Tobacco Use Smoking Status: Never smoker Tobacco Use: Non-smoker Assessment/Plan All Active Problems Acute metabolic encephalopathy (Acute) UTI (urinary tract infection) (Acute) 1. Presumed toxic encephalopathy Reviewed OARRS: she receives [place] and Gabapentin. She received 810 gabapentin (90 day supply) on 04/24. DC all potentiating medications: norco, gabapentin, baclofen I feel Gabapentin is the most likely etiology of her confusion. If persists, consider MRI 2. Cystitis Ruled out UA unremarkable DC abx 3. CKD 3 stable Patient is not uremic 4. DVT proph: SQ heparin. Code Visit Inpatient E&M: 83750 Subs Hosp L3
--- NOTE | 2018-05-24 11:35 | CASEMGMT ---
RN VIC Face to Face with patient for initial transition planning/care coordination assessment. RN CM introduced self and role at [facility]. Patient lying in bed, alert and oriented. Patient willing to participate in assessment and is able to answer all questions appropriately. Care providers, pharmacy, and demographics verified. Patient wishes to discharge home, denies need for home health at this time. Patient states she has no further needs or concerns at this time. CM to follow for discharge planning needs that may arise. PCP: Behzad Specialists: [employer] [facility] Benef[facility]: Yes Living Will/HPOA: Yes, significant other Nahid Delarosarp. LNOK: Significant other Living Arrangements: Patient lives with significant other in 1 story house with 1 step to enter home. Patient is independent at home. Transportation: Sig. other DME/HHC: Patient denies DME at home. States may benefit from cane, explained that will need purchased over the counter. No previous HHC. Disposition Plan: Patient to discharge home with family support and follow-up plans in place. Susan RUTHERFORD, RN, CM
[2018-05-24] MEDS: Atorvastatin Calcium 40 MG Tablet PO (21:43)
[2018-05-24] MEDS: Ondansetron 4 MG/2 ML Vial IV (21:44)
[2018-05-25 02:23] VITALS: BP 161/70; PULSE 67; RESP 16; TEMP 37.1; O2SAT 96
[2018-05-25] MEDS: Acetaminophen 325 MG Tablet 650 MG PO (02:26)
[2018-05-25 04:00] VITALS: PULSE 67
[2018-05-25] MEDS: Heparin Injection (Vial) 5,000 UNIT/ML VIAL 5000 UNIT SC (05:39)
[2018-05-25 05:43] VITALS: BP 159/82; PULSE 68; RESP 16; TEMP 37.2; O2SAT 94
[2018-05-25] MEDS: 0.9% Normal Saline 1,000 ML 100 ML IV (07:31)
[2018-05-25 07:40] VITALS: O2SAT 94
[2018-05-25] MEDS: Aspirin 81 MG TAB.CHEW PO (07:43)
[2018-05-25] MEDS: Loratadine 10 MG Tablet PO (07:43)
[2018-05-25] MEDS: DULoxetine Hcl 30 MG Capsule PO (07:43)
[2018-05-25] MEDS: Pantoprazole Sodium 20 MG Tablet PO (07:46)
[2018-05-25 07:59] VITALS: PULSE 64
--- NOTE | 2018-05-25 11:47 | DCINST_ITS ---
- Discharge Diagnoses Current Active Problems: Current Active and Chronic Problems Acute metabolic encephalopathy (Acute) UTI (urinary tract infection) (Acute) CKD (chronic kidney disease), stage IV (Chronic) CAD (coronary artery disease) (Chronic) HTN (hypertension) (Chronic) GERD (gastroesophageal reflux disease) (Chronic) You will use the following diet at home:: No restrictions Your food should be the consistency of: Regular Discharge Activity: Return to Normal Activity, May not drive while taking narcotic pain medications. Call your doctor if you observe: - - confusion Allergies/Adverse Reactions: Allergies codeine Allergy (Verified 05/23/18 13:44) Nausea/Vom/Diarrhea oxybutynin [From Ditropan] Allergy (Verified 05/23/18 13:44) Swelling Medications to take at Discharge Aspirin [Aspirin, Baby] 81 mg PO DAILY@0800 11/27/15 Atorvastatin Calcium [Lipitor] 40 mg PO QHS 11/27/15 Docusate Sodium [Colace] 100 mg PO BID 11/27/15 Hydrocodone Bitart/Apap 5-325 [[place] 5/325] 1 tablet PO TID 11/27/15 Loratadine [Claritin] 10 mg PO DAILY 11/27/15 Nitroglycerin [Nitrostat] 0.4 mg SUBLINGUAL Q5M PRN 11/27/15 Omeprazole [Prilosec] 20 mg PO DAILY 11/27/15 traZODone [Desyrel] 50 - 100 mg PO QHS 11/27/15 Acebutolol HCl 200 mg PO DAILY 05/23/18 Baclofen 10 mg PO TID PRN PRN 05/23/18 Cholecalciferol (Vitamin D3) [Vitamin D3] 2,000 unit PO DAILY 05/23/18 Clobetasol Propionate 1 applic TP BID 05/23/18 Duloxetine Hcl [Cymbalta] 30 mg PO DAILY 05/23/18 Estradiol [Estrace] 1 applic TP DAILY 05/23/18 Losartan Potassium 50 mg PO DAILY 05/23/18 Mupirocin Calcium [Bactroban] 1 applic TP TID 05/23/18 Nifedipine [Nifedipine ER] 30 mg PO DAILY 05/23/18 Triamcinolone Acetonide 1 applic TP BID 05/23/18 Ondansetron [Zofran] 4 mg IV Q8H PRN PRN vial 05/25/18 Primary Care Physician: Giuseppe Hunt DO [Primary Care Provider] - Within 2 Weeks Test Results: Test results from this visit will be discussed in further detail at your follow- up appointment, if applicable. Proposed Discharge Date: 05/25/18
--- NOTE | 2018-05-25 11:49 | DS.PCM_ITS ---
Discharge Date and Diagnosis - Problem List Patient Problems: Active and Suspected Problems Toxic encephalopathy (Acute) Date of Admission: 05/23/18 Date of Discharge: 05/25/18 - Primary Discharge Diagnosis Active and Suspected Problems Toxic encephalopathy (Acute) - Secondary Discharge Diagnosis Chronic Problems CKD (chronic kidney disease), stage IV (Chronic) CAD (coronary artery disease) (Chronic) HTN (hypertension) (Chronic) GERD (gastroesophageal reflux disease) (Chronic) Hospital Course and Treatment Imaging Results: Clinical Impression(s) from Imaging Studies Brain CT 05/23/18 14:13 IMPRESSION: Chronic involutional changes of the brain. Electronically Signed: Jeison Alvarez MD at 15:52 EST , Service support , Chest X-Ray 05/23/18 14:13 IMPRESSION: Hyperinflation. The lungs are clear. Electronically Signed: Jeison Alvarez MD at 14:49 EST , Service support , Operations: None Procedures: None Summary of Care Provided: The patient is a 72 year old F presents with confusion 1. toxic encephalopathy Reseolved Reviewed OARRS: she receives [place] and Gabapentin. She received 810 gabapentin (90 day supply) on 04/24. DC Gabapentin. If confusion recurs, then would also dc baclofen. No metabolic etiology identified. 2. Cystitis Ruled out UA unremarkable DC abx 3. CKD 3 stable Patient is not uremic [] Patient Problems: Active and Suspected Problems Toxic encephalopathy (Acute) Objective: Feels good. No complaints. Ready to go home. - Physical Exam General: Alert, Oriented x3, No apparent distress HEENT: Atraumatic, Normocephalic Vital Signs Temp Pulse Resp BP Pulse Ox 37.2 C 64 16 159/82 H 94 05/25/18 05:43 05/25/18 07:59 05/25/18 05:43 05/25/18 05:43 05/25/18 07:40 Oxygen Delivery Method Room Air Weight: 74.5 kg Body Mass Index (BMI) 30.0 Intake and Output for Last 24 Hours 05/23/18 05/24/1819 23:59 23:59 23:59 Intake Total 3515 / 3515 1285 / 1285 Output Total 500 / 500 900 / 900 Balance 3015 / 3015 385 / 385 Microbiology Past 72 Hours 05/23/18 17:20 Urine Culture - Final Urine, Clean Catch Culture exhibits no growth. Discharge Diet: No Restrictions Discharge Activity: Return to Normal Activity, May not drive while taking narc otic pain medications. Call your doctor if you observe: - - confusion Home Medications: Medications to take at Discharge Aspirin [Aspirin, Baby] 81 mg PO DAILY@0800 11/27/15 Atorvastatin Calcium [Lipitor] 40 mg PO QHS 11/27/15 Docusate Sodium [Colace] 100 mg PO BID 11/27/15 Hydrocodone Bitart/Apap 5-325 [[place] 5/325] 1 tablet PO TID 11/27/15 Loratadine [Claritin] 10 mg PO DAILY 11/27/15 Nitroglycerin [Nitrostat] 0.4 mg SUBLINGUAL Q5M PRN 11/27/15 Omeprazole [Prilosec] 20 mg PO DAILY 11/27/15 traZODone [Desyrel] 50 - 100 mg PO QHS 11/27/15 Acebutolol HCl 200 mg PO DAILY 05/23/18 Baclofen 10 mg PO TID PRN PRN 05/23/18 Cholecalciferol (Vitamin D3) [Vitamin D3] 2,000 unit PO DAILY 05/23/18 Clobetasol Propionate 1 applic TP BID 05/23/18 Duloxetine Hcl [Cymbalta] 30 mg PO DAILY 05/23/18 Estradiol [Estrace] 1 applic TP DAILY 05/23/18 Losartan Potassium 50 mg PO DAILY 05/23/18 Mupirocin Calcium [Bactroban] 1 applic TP TID 05/23/18 Nifedipine [Nifedipine ER] 30 mg PO DAILY 05/23/18 Triamcinolone Acetonide 1 applic TP BID 05/23/18 Ondansetron [Zofran] 4 mg IV Q8H PRN PRN vial 05/25/18 Primary Care Physician: Giuseppe Hunt DO [Primary Care Provider] - Within 2 Weeks Disposition: Home Minutes spent on discharge:: 32 Patient Condition:: Good Medical Necessity - Tobacco Use Smoking Status: Never smoker Tobacco Use: Non-smoker Meaningful Use Info Meaningful Use Diagnoses (Choose all that apply): None applicable Code Visit Inpatient E&M: 94209 Disch Hosp
[2018-05-25 12:00] VITALS: BP 177/82; PULSE 70; RESP 16; TEMP 36.8; O2SAT 97
== END 2018-05-25 12:05 | disposition home or self-care (01) | DRG 93 ==
LOC: ED 15:07 → MS3 17:46
PROVIDERS: Admitting Provider Hospitalist; Emergency Provider Emergency Medicine; Family Provider Student in an Organized Health Care Education/Training Program; PCP Student in an Organized Health Care Education/Training Program
DX: G92 Toxic encephalopathy (principal); I12.9 Hypertensive chronic kidney disease with stage 1 through stage 4 chronic kidney disease, or unspecified chronic kidney disease; I25.10 Atherosclerotic heart disease of native coronary artery without angina pectoris; T42.6X5A Adverse effect of other antiepileptic and sedative-hypnotic drugs, initial encounter; K21.9 Gastro-esophageal reflux disease without esophagitis; M79.7 Fibromyalgia; N18.3 Chronic kidney disease, stage 3 (moderate)
CPT/HCPCS: 70450; 71045; 80048; 81001; 85025; 87086; 93005; 97161; 97166; 99283; J7030; J7050; A4216; J2405

== ENCOUNTER 2023-09-05 08:29 | Day surgery (SDC) | payer MEDICARE, SELFPAY ==
--- NOTE | 2023-09-04 16:45 | PCM.HP.BLA ---
History and Physical Date of Admission: 09/05/23 Pre-Op History and Physical HPI: The patient is a 78 year old female presenting for discussion regarding PMB, thickened EM. Pt reports had bleeding moderate flow- 3 days ago. pre-operative visit. She is scheduled for Hysteroscopy D&C, possible polypectomy with symphion for PMB, thickened Endometrium, stenotic cervix on 09/05/23. Procedure discussed along with risks, benefits and complications. Other alternatives discussed for management. Consent form signed? Yes. PAST MEDICAL HISTORY PAST MEDICAL HISTORY Diagnosis Date ? CAD (coronary artery disease) ? Chronic kidney disease 2006 stage 4, after ureteral stent surgeries, Dr. Castro [facility] in [place] ? DDD (degenerative disc disease), lumbar 04/11/2011 ? Diverticulosis 09/18/2011 ? GERD (gastroesophageal reflux disease) 09/18/2011 ? Hearing aid worn ? Hyperlipidemia 09/18/2011 ? Hypertension 09/18/2011 ? Insomnia ? Low T4 05/2017 ? Solitary kidney PAST SURGICAL HISTORY PAST SURGICAL HISTORY Procedure Laterality Date ? DELIVERY ONLY , low transverse ? CHOLECYSTECTOMY Cholecystectomy ? COLONOSCOPY September 2010 ? LAMINECTOMY W/O FFD / VERT SEG LUMBAR Laminectomy, lumbar, L4-5 ? LEFT HEART CATH,PERCUTANEOUS 2001 Cardiac cath, L heart ? NEPHRECTOMY PARTIAL Nephrectomy-right ? PAST SURGICAL HISTORY OF Sigmoidectomy ? PAST SURGICAL HISTORY OF 2006 small bowel resection ? PAST SURGICAL HISTORY OF Surgical ureter repair ? RMVL LENS MATERIAL PHACOFRAGMENTATION ASPIR Cataract Extraction-bilateral CURRENT MEDICATIONS Current Outpatient Medications Medication Sig Dispense Refill ? DULoxetine (CYMBALTA) 30 mg capsule Take 1 capsule by mouth once daily. 90 capsule 1 ? [START ON 10/02/2023] HYDROcodone-Acetaminophen (NORCO) 10-325 mg per tablet Take 1 tablet by mouth every 8 hours as needed for pain for up to 7 days. Do not start before October 02, 2023. 90 tablet 0 ? norethindrone (AYGESTIN) 5 mg tablet 1 tab 3x/day until bleeding stops. 1 tab 2x/day x 2 days. 1 tab daily x 2 days 35 tablet 0 ? Magnesium Gluconate 27.5 mg magne- sium (500 mg) tab Take by mouth. ? losartan (COZAAR) 50 mg tablet Take 1 tablet by mouth once daily. 90 tablet 1 ? NIFEdipine XL (ADALAT CC) 30 mg 24 hr tablet Take 1 tablet by mouth once daily. 90 tablet 1 ? atorvastatin (LIPITOR) 80 mg tablet Take 1 tablet by mouth once daily. 90 tablet 1 ? estradiol (ESTRACE) 0.01 % (0.1 mg/gram) vaginal cream Use 1 g vaginally every Saturday, Saturday, and Saturday. 42.5 g 3 ? levothyroxine (LEVOXYL) 50 mcg tablet Take 1 tablet by mouth once daily. In the morning on empty stomach. For Thyroid 90 tablet 1 ? ciprofloxacin HCl (CIPRO) 500 mg tablet Take 1 tablet PO once daily as needed to prevent UTI after intercourse 30 tablet 1 ? folic acid 1 mg tablet Take 1 tablet by mouth once daily. 90 tablet 1 ? baclofen 10 mg tablet Take 1 tablet by mouth three times a day. As needed for muscle spasms 270 tablet 1 ? benzonatate (TESSALON PERLES) 100 mg capsule Take 1 capsule by mouth three times a day as needed for cough. 60 capsule 2 ? acebutolol (SECTRAL) 200 mg capsule Take 1 capsule by mouth once daily. 90 capsule 3 ? mirtazapine (REMERON) 15 mg tablet Take 1 tablet by mouth daily at bedtime. 90 tablet 1 ? tolterodine (DETROL) 2 mg tablet Take 1 tablet by mouth once daily. 90 tablet 1 ? donepezil (ARICEPT) 5 mg tablet Take 1 tablet by mouth daily at bedtime. 90 tablet 1 ? nitroglycerin sublingual (NITROSTAT) 0.4 mg SL tablet Dissolve 1 tablet under the tongue every 5 minutes as needed. 1 Bottle of 25 3 ? blood sugar diagnostic (BLOOD GLUCOSE TEST) test strip Test blood sugar(s) 2 times daily. Dx: Type 2 DM - Uncontrolled E11.65 Insulin: No 50 Strip 11 ? Clobetasol Propionate (TEMOVATE) 0.05 % external solution Apply 1 application to affected area twice daily. As needed for scalp psoriasis 1 Bottle 3 ? triamcinolone acetonide (KENALOG) 0.1 % ointment Apply 1 application to affected area twice daily. As needed for psoriasis of skin 90 g 1 ? omeprazole (PRILOSEC) 20 mg capsule Take 1 capsule by mouth once daily. 90 capsule 3 ? Cholecalciferol, Vitamin D3, (VITAMIN D-3) 2,000 unit Cap Take 2,000 Units by mouth once daily. 0 ? aspirin, enteric coated (ASPIR-LOW) 81 mg EC tablet Take 1 tablet by mouth once daily. 0 ? docusate sodium(COLACE 100 MG CAP) Take one(1) tablet twice daily. 0 ? loratadine(CLARITIN 10 MG TAB) Take one(1) tablet daily as needed for allergy symptoms. 0 ? [START ON 09/03/2023] HYDROcodone-Acetaminophen (NORCO) 10-325 mg per tablet Take 1 tablet by mouth every 8 hours as needed for pain for up to 30 days. Do not start before September 03, 2023. 90 tablet 0 ? HYDROcodone-Acetaminophen (NORCO) 10-325 mg per tablet Take 1 tablet by mouth every 8 hours as needed for pain for up to 30 days. 90 tablet 0 ? miSOPROStol (CYTOTEC) 200 mcg tablet Take 2 tabs orally the night prior to procedure and 2 tabs morning of procedure 4 tablet 0 ? Lancets lancets Test blood sugar(s) 2 times daily. Dx: Type 2 DM - Uncontrolled E11.65 Insulin: No 100 Each 11 No current facility-administered medications for this visit. ALLERGIES: Codeine and Ditropan [Oxybutynin Chloride] PERSONAL HISTORY: SOCIAL HISTORY Social History Tobacco Use ? Smoking status: Never ? Smokeless tobacco: Never Substance Use Topics ? Alcohol use: Yes Comment: Occasional glass of wine ? Drug use: No FAMILY HISTORY: FAMILY HISTORY FAMILY HISTORY Problem Relation Age of Onset ? Cancer Mother age 63 of pancreatic cancer, also history of DM ? Emphysema Father age 67, previous [place] mid 40's ? Heart Brother age 62 of [place], previous cancer ? Lipids Brother Alive age 60 ? Cancer Daughter Allive age 45, history of HTN ? Hypertension Daughter Alive 3 with HTN ? Heart Maternal Aunt late 50's of [place] ? Heart Maternal Aunt early 60's of [place] ? Heart Maternal Uncle late 40's of [place] ? Heart Maternal Uncle early 70's of [place] REVIEW OF SYMPTOMS: negative except as noted above PHYSICAL EXAMINATION: VITALS: Blood pressure 144/88, pulse 73, weight 163 lb (73.9 kg), SpO2 96%. GENERAL: The patient is well nourished, well hydrated in no acute distress. , The patient is oriented to time, place, and person. NECK: full range of motion LUNGS: Clear to auscultation bilaterally. no wheezes, rhonchi or rales HEART: Regular rate and rhythm, Normal heart sounds, and No murmurs or gallops IMPRESSION: 78yo with PMB, THickened Endometrium, Stenotic cervix. Failed in office EMB. PLAN: Hysteroscopy, D&C, possible polypectomy with Symphion Pt has been counseled on risks/benefits and alternatives of surgery including but not limited to anesthesia, bleeding, infection, uterine perforation with subsequent injury to pelvic structures including bowel, bladder, ureters and vessels. Pt wishes to proceed with surgery at this time. Reviewed elevated CA125 level and other reasons for elevation. Discussed pre and post op instructions. Medical clearance obtained by PCP- will get CBC, BMP done today. EKG done. Will fax to [facility]. I have reviewed and updated past medical and surgical history, medications and allergies Augustina Aguiar MD Office Visit on 08/28/2023 Note shared with patient
[2023-09-05] VITALS (9 sets, daily range): BP systolic 111–131; BP diastolic 55–83; PULSE 67–85; RESP 16; TEMP 36.1–36.4; O2SAT 90–99; BMI 30.9
[2023-09-05] MEDS: Lactated Ringers 1,000 ML 15 ML IV (08:59)
[2023-09-05 09:21] LABS: Bedside Glucose 139 mg/dL (74-106)
--- NOTE | 2023-09-05 10:05 | EMB_PTH ---
PATIENT: OMI LOYOLA [place] [facility] [id number] AGE/SX: 78/F ROOM: RE09/05/[address]: Dr. Augustina Lazo, MDDOB: 1945 BED: DIS: 09/05/2023 SPEC #: [id number] RECD: 09/05/23 14:58 STATUS: KRISHNA MORALESMichael #: [id number] MARIO: 09/05/23 10:[address]: Augustina Lazo DEPT: SURGICAL PATHOLOGY RECD BY: Adelaida Gonzalez ENTERED: 09/06/23 07:07 SP TYPE: ENDOM BX/C STEPHANIE DR: Dr. Giuseppe Hunt, Tissues: Endometrium, NOS Procedures: Surgery Specimen Level IV HEADER OPERATION: Hysteroscopy, D&C, polypectomy, Symphion PRE-OP DIAGNOSIS: Thickened endometrium, stenotic cervix TISSUE SUBMITTED: Endometrial curettings, polyp MICROSCOPIC DIAGNOSIS Endometrium, curettings polyp: Weakly proliferative to inactive endometrium with focal cystic hyperplasia without atypia. Mild chronic endometritis. DEISI/ 09/09/2023 MICROSCOPIC DESCRIPTION Slides are reviewed. GROSS DESCRIPTION Received in fixative is one container labeled with the patient's name and designated Endometrial curettings/ endometrial polyp. The specimen consists of multiple irregular fragments of light dmuont soft tissue that in aggregate measure 2.5 x 1.0 x 0.1 cm. The specimen is totally submitted in one cassette. Josue 09/06/2023 TC:3 CPT:07686
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
--- NOTE | 2023-09-05 10:43 | DCINST_ITS ---
Discharge Instructions Diet Discharge Diet: No restrictions Activity May resume sexual activity in: 1 week Dressing / Incision Call your doctor if you observe: Fever of 101 or Higher, Inability to urinate, Using more than 1 pad per hour and Uncontrolled pain Follow Up Care Please Follow Up With: Augustina Aguiar MD When: 1-2 weeks post OP if you need an appointment please call [phone] Test Results: Test results from this visit will be discussed in further detail at your follow- up appointment, if applicable. Discharge Plan Admission Attending Provider: Augustina Aguiar Primary Care Provider: Giuseppe Hunt Discharge Orders/Prescriptions Prescriptions: No Action atorvastatin 40 MG tablet 40 mg PO QHS trazodone 50 MG tablet 50 - 100 mg PO QHS Patient Comments: pt states takes 2 tabs at bed time. hydrocodone-acetaminophen 1 TABLET tablet 1 tab PO TID nitroglycerin 0.4 MG tablet 0.4 mg sublingual Q5M PRN (Reason: Chest Pain) docusate sodium [DOK] 100 MG capsule 100 mg PO BID omeprazole 20 MG capsule 20 mg PO DAILY aspirin 81 MG tablet,chewable 81 mg PO DAILY@0800 loratadine [Allergy Relief (loratadine)] 10 MG tablet 10 mg PO DAILY losartan 50 MG tablet 50 mg PO DAILY nifedipine 30 MG tablet extended release 30 mg PO QHS triamcinolone acetonide 80 GM ointment 1 applic TP BID mupirocin calcium [Bactroban] 15 GM cream 1 applic TP TID acebutolol 200 MG capsule 200 mg PO DAILY estradiol [Estrace] 0.01 % cream 1 applic TP MOWEFR clobetasol 50 ML solution 1 applic TP BID duloxetine 30 MG capsule 30 mg PO DAILY cholecalciferol (vitamin D3) [Vitamin D3] 2,000 UNIT capsule 2,000 unit PO DAILY Baclofen 10 MG tablet 10 mg PO TID PRN PRN (Reason: muscle spasms) levothyroxine 50 mcg tablet 50 mcg PO DAILY Referrals / Follow Up: Giuseppe Hunt DO [Primary Care Provider] - Disposition Disposition (needs filled in before D/C Order can be placed): Home, Self Care
== END 2023-09-05 12:05 | disposition home or self-care (01) ==
LOC: SDC 08:32 → AC 08:33
PROVIDERS: PCP Student in an Organized Health Care Education/Training Program; Referring Provider Obstetrics & Gynecology; Visit Provider Obstetrics & Gynecology
PROC: 0UB98ZZ Excision of Uterus, Via Natural or Artificial Opening Endoscopic (ICD-10-PCS; CPT 58558; principal; 2023-09-05 09:50)
DX: N85.00 Endometrial hyperplasia, unspecified (principal); N18.4 Chronic kidney disease, stage 4 (severe); E11.22 Type 2 diabetes mellitus with diabetic chronic kidney disease; I25.10 Atherosclerotic heart disease of native coronary artery without angina pectoris; I12.9 Hypertensive chronic kidney disease with stage 1 through stage 4 chronic kidney disease, or unspecified chronic kidney disease; N84.1 Polyp of cervix uteri; E78.00 Pure hypercholesterolemia, unspecified; Z79.82 Long term (current) use of aspirin; Z79.899 Other long term (current) drug therapy; Z79.890 Hormone replacement therapy; K21.9 Gastro-esophageal reflux disease without esophagitis; E07.9 Disorder of thyroid, unspecified
CPT/HCPCS: 58558; 00952; 82962; 88305; J7120; J2405